=== PATIENT | male | born 1960 | race Two or more races ===

== ENCOUNTER 2024-03-11 03:17 | Inpatient (IN) | payer OTHER ==
[~2024-03-11] VITALS: Ht 185.4 cm; Wt 99.3 kg
[2024-03-11] MEDS ORDERED: COZAAR100 MG (03:31)
[2024-03-11] MEDS ORDERED: JARDIANCE25 MG PO (03:32)
[2024-03-11] MEDS ORDERED: VERELAN PM200 MG PO (03:32)
[2024-03-11] MEDS ORDERED: FENOFIBRATE150 MG PO (03:32)
[2024-03-11] MEDS ORDERED: NEBIVOLOL HCL10 MG PO (03:32)
[2024-03-11] MEDS ORDERED: EZETIMIBE10 MG PO (03:32)
[2024-03-11] MEDS ORDERED: PROTONIX40 M1 PO (03:32)
--- NOTE | 2024-03-11 03:36 | NUR ---
SE RECIBE MASCULINO ALERTA Y ORIENTADO X3 QUIEN REFIERE DOLOR ABDOMINAL Y VOMITOS X4 LUEGO DE SANDRITA COMIDO CARNE CON SALSA SHILO Y PIMIENTOS. SE MIDEN S/V Y SE UBICA.
[2024-03-11] MEDS ORDERED: METOCLOPRAMIDE HCL 5 MG/ML VIAL IM STA (03:43)
[2024-03-11] MEDS ORDERED: RINGERS SOLUTION,LACTATED 1,000 ML IV STA (03:44)
[2024-03-11] MEDS ORDERED: ONDANSETRON HCL 2 MG/ML VIAL IV STA (03:44)
[2024-03-11] MEDS ORDERED: FAMOtidine 10 MG/ML (4ML VIAL) IV PUSH STA (03:45)
[2024-03-11] MEDS ORDERED: KETOROLAC TROMETHAMINE 30 MG VIAL IV STA (03:45)
[2024-03-11] MEDS ORDERED: HYOSCYAMINE SULFATE 0.125 MG TAB.SUBL SL ONE (03:45)
[2024-03-11] MEDS ORDERED: HYOSCYAMINE SULFATE 0.125 MG TAB.SUBL ONE (03:50)
[2024-03-11] MEDS ORDERED: KETOROLAC TROMETHAMINE 30 MG VIAL ONE (03:50)
[2024-03-11] MEDS ORDERED: ONDANSETRON HCL 2 MG/ML VIAL ONE (03:50)
[2024-03-11] MEDS ORDERED: FAMOTIDINE/PF 20 MG/2 ML VIAL ONE ×2 (03:51→16:05)
[2024-03-11] MEDS ORDERED: METOCLOPRAMIDE HCL 5 MG/ML VIAL ONE (03:51)
--- NOTE | 2024-03-11 03:51 | NUR ---
PE EVALUADO POR MD ANN OR[place] TX MED A PTE SE EDUCA A PTE SOBRE EL MISMO Y PTE REFEIRE ENTENDER. SE LLEVA ACABO VENOPUNCION BAJO MEDIDAS ACEPTICAS. PTE PEND A RESULTADOS DE LABS.
[2024-03-11 04:18] LABS: HEMATOCRIT 53.2 % (39.0-48.0); HEMOGLOBIN 18.5 g/dL (13-16.00); MEAN CELL VOLUME 89.1 fL (80.0-100.00); MEAN CORPUSCULAR HGB CONC 34.8 g/dl (32.0-36.0); RED BLOOD COUNT 5.97 M/uL (4.00-6.00); RED CELL DISTRIBUTION WIDTH 13.3 % (11.5-14.5)
[2024-03-11 04:33] LABS: ALBUMIN 4.2 gm/dL (3.4-5.0); BILIRUBIN TOTAL 0.92 mg/dL (0.3-1.2); CALCIUM 9.7 mg/dL (8.5-10.1); CREATININE SERUM 1.22 mg/dL (0.70-1.30); GFR 59.8; GLOBULINA 3.3 G/DL (2.4-3.5); POTASSIUM 3.06 mEq/L (3.5-5.1); TOTAL PROTEIN 7.5 gm/dL (6.4-8.2)
[2024-03-11] MEDS ORDERED: MEPERIDINE HCL/PF 50 MG/ML VIAL IM STA (04:45)
[2024-03-11] MEDS ORDERED: PROMETHAZINE HCL 50 MG/ML AMPUL IM STA (04:46)
[2024-03-11] MEDS ORDERED: PROMETHAZINE HCL 50 MG/ML AMPUL IM ONE (04:50)
[2024-03-11] MEDS ORDERED: BARIUM SULFATE 450 ML ORAL.SUSP PO ONE (04:51)
[2024-03-11 05:51] LABS: PLATELET COUNT 349 K/uL (150-450)
[2024-03-11] MEDS ORDERED: ACETAMINOPHEN 500 MG GEL..CAP PO ONE ×2 (06:24→06:30)
[2024-03-11] MEDS ORDERED: PIPERACILLIN/TAZOBACTAM SODIUM 3.375 GM VIAL IV STA (07:31)
--- NOTE | 2024-03-11 07:39 | NUR ---
SE RECIBE PTE ALERTA Y ORIENTADO X3 EN CAMA CON BARANDAS ELEVADAS. PENDIENTE REALIZAR CT PO A LAS 0800
[2024-03-11] MEDS ORDERED: PIPERACILLIN/TAZOBACTAM SODIUM 3.375 GM VIAL IV ONE (07:43)
[2024-03-11] MEDS ORDERED: MEPERIDINE HCL/PF 50 MG/ML VIAL IM ONE (08:45)
[2024-03-11] MEDS ORDERED: FAMOTIDINE/PF 20 MG in 0.9 % SODIUM CHLORIDE 100 ML IV SCH (13:05)
[2024-03-11] MEDS ORDERED: LOSARTAN POTASSIUM 50 MG TABLET PO SCH (13:11)
[2024-03-11] MEDS ORDERED: CIPROFLOXACIN IN 5 % DEXTROSE 200 ML IV SCH (13:12)
[2024-03-11] MEDS ORDERED: METRONIDAZOLE/SODIUM CHLORIDE 100 ML IV SCH (13:12)
[2024-03-11] MEDS ORDERED: 0.9 % SODIUM CHLORIDE 1,000 ML IV SCH (13:15)
[2024-03-11] MEDS ORDERED: POTASSIUM CHLORIDE 20MEQ/100ML H2O PB IV ONE ×2 (13:15→13:22)
[2024-03-11] MEDS ORDERED: MORPHINE SULFATE 2 MG/ML CARTRIDGE IV PRN (13:15)
[2024-03-11] MEDS ORDERED: POTASSIUM CHLORIDE/D5-0.9%NACL 1,000 ML IV ONE (13:15)
[2024-03-11] MEDS ORDERED: CIPROFLOXACIN IN 5 % DEXTROSE 400 MG/200 ML PIGGYBAG IV ONE (13:22)
[2024-03-11] MEDS ORDERED: METRONIDAZOLE/SODIUM CHLORIDE 500 MG/100 ML PIGGYBACK IV ONE ×2 (13:23→16:34)
[2024-03-11] MEDS ORDERED: MORPHINE SULFATE 4 MG/ML CARTRIDGE IV SCH (13:28)
[2024-03-11] MEDS ORDERED: VERAPAMIL HCL 180 MG CAP24H.PEL PO SCH (13:29)
[2024-03-11] MEDS ORDERED: ACETAMINOPHEN 325 MG TABLET PO PRN (13:30)
[2024-03-11] MEDS ORDERED: INSULIN LISPRO 1,000 UNIT/10 ML UNITS SUBCUTANEO PRN (13:30)
[2024-03-11] MEDS ORDERED: DEXTROSE 50 % IN WATER 0.5 G/ML DISP.SYRIN IV PRN (13:30)
[2024-03-11] MEDS ORDERED: VERAPAMIL HCL 180 MG TABLET.SA PO SCH (13:31)
[2024-03-11 14:04] LABS: INR 1.16
[2024-03-11 14:09] LABS: ALBUMIN 3.8 gm/dL (3.4-5.0); BILIRUBIN TOTAL 1.11 mg/dL (0.3-1.2); BILIRUBIN,CONJUGATED 0.43 mg/dL (0.0-0.2); BILIRUBIN,UNCONJUGATED 0.68 mg/dL (0.0-0.6); CALCIUM 9.1 mg/dL (8.5-10.1); TOTAL PROTEIN 7.4 gm/dL (6.4-8.2)
[2024-03-11] MEDS ORDERED: SODIUM CL 0.9% 100 ML IV.SOLN IV ONE (16:33)
[2024-03-12] MEDS ORDERED: THIAMINE HCL 100 MG/ML 2 ML VIAL IV SCH (12:00)
[2024-03-13 08:36] LABS: HEMATOCRIT 50.6 % (39.0-48.0); HEMOGLOBIN 17.3 g/dL (13-16.00); MEAN CELL VOLUME 91.6 fL (80.0-100.00); MEAN CORPUSCULAR HEMOGLOBIN 31.4 pg (27.00-32.0); MEAN CORPUSCULAR HGB CONC 34.3 g/dl (32.0-36.0); PLATELET COUNT 213 K/uL (150-450); RED BLOOD COUNT 5.52 M/uL (4.00-6.00); RED CELL DISTRIBUTION WIDTH 13.8 % (11.5-14.5)
[2024-03-13 09:10] LABS: ALBUMIN 2.5 gm/dL (3.4-5.0); BILIRUBIN TOTAL 1.28 mg/dL (0.3-1.2); CREATININE SERUM 1.34 mg/dL (0.70-1.30); GFR 53.66; GLOBULINA 2.6 G/DL (2.4-3.5); POTASSIUM 4.64 mEq/L (3.5-5.1); TOTAL PROTEIN 5.1 gm/dL (6.4-8.2)
[2024-03-14 08:41] LABS: HEMATOCRIT 45.1 % (39.0-48.0); HEMOGLOBIN 15.6 g/dL (13-16.00); MEAN CELL VOLUME 92.2 fL (80.0-100.00); MEAN CORPUSCULAR HEMOGLOBIN 31.9 pg (27.00-32.0); MEAN CORPUSCULAR HGB CONC 34.5 g/dl (32.0-36.0); PLATELET COUNT 227 K/uL (150-450); RED BLOOD COUNT 4.89 M/uL (4.00-6.00); RED CELL DISTRIBUTION WIDTH 13.5 % (11.5-14.5)
[2024-03-14 09:15] LABS: ALBUMIN 2.5 gm/dL (3.4-5.0); BILIRUBIN TOTAL 1.01 mg/dL (0.3-1.2); CALCIUM 7.3 mg/dL (8.5-10.1); CREATININE SERUM 0.93 mg/dL (0.70-1.30); GFR 81.8; GLOBULINA 2.8 G/DL (2.4-3.5); POTASSIUM 4.35 mEq/L (3.5-5.1); TOTAL PROTEIN 5.3 gm/dL (6.4-8.2)
== END 2024-03-14 15:20 | disposition home or self-care (01) | DRG 391 ==
LOC: ER 03:18 → SURH 13:46 → SEC-K 13:46 → SURH 15:50
PROVIDERS: General Practice; ADMIT Internal Medicine; ATTEND Internal Medicine
PROC: BW21ZZZ Computerized Tomography (CT Scan) of Abdomen and Pelvis (ICD-10-PCS; principal; 2024-03-11)
PROC: BW40ZZZ Ultrasonography of Abdomen (ICD-10-PCS; 2024-03-11)
DX: K90.49 Malabsorption due to intolerance, not elsewhere classified (principal); K85.90 Acute pancreatitis without necrosis or infection, unspecified; D72.828 Other elevated white blood cell count; I10 Essential (primary) hypertension; E11.9 Type 2 diabetes mellitus without complications; Z79.4 Long term (current) use of insulin

== ENCOUNTER 2024-04-04 08:25 | Emergency (ER) | payer OTHER ==
[~2024-04-04] VITALS: Ht 185.4 cm; Wt 84.4 kg
[~2024-04-04 08:25] MED LIST: COZAAR100 MG; EZETIMIBE10 MG PO; FENOFIBRATE150 MG PO; JARDIANCE25 MG PO; NEBIVOLOL HCL10 MG PO; PROTONIX40 M1 PO; VERELAN PM200 MG PO
[2024-04-04] MEDS ORDERED: CEFTRIAXONE SODIUM 2,000 MG VIAL IV ONE (08:45)
[2024-04-04] MEDS ORDERED: CEFTRIAXONE SODIUM 2,000 MG VIAL ONE (08:47)
[2024-04-04] MEDS ORDERED: LIDOCAINE HCL 1% 10ML VIAL ONE (08:52)
[2024-04-04 09:01] LABS: HEMATOCRIT 43.5 % (39.0-48.0); HEMOGLOBIN 14.9 g/dL (13-16.00); MEAN CELL VOLUME 88.1 fL (80.0-100.00); MEAN CORPUSCULAR HEMOGLOBIN 30.3 pg (27.00-32.0); MEAN CORPUSCULAR HGB CONC 34.4 g/dl (32.0-36.0); PLATELET COUNT 490 K/uL (150-450); RED BLOOD COUNT 4.93 M/uL (4.00-6.00); RED CELL DISTRIBUTION WIDTH 13.7 % (11.5-14.5)
[2024-04-04 10:16] LABS: CALCIUM 9.8 mg/dL (8.5-10.1); CREATININE SERUM 1.22 mg/dL (0.70-1.30); GFR 59.8; POTASSIUM 4.16 mEq/L (3.5-5.1)
[2024-04-04 11:12] LABS: URINE APPEARANCE Clear; URINE BILIRRUBIN Negative (NEGATIVE); URINE BLOOD Negative; URINE COLOR Yellow; URINE KETONE Negative (NEGATIVE); URINE LEUKOCYTE Negative; URINE NITRATE Negative; URINE PROTEIN Negative (NEGATIVE)
[2024-04-04 11:17] LABS: URINE BACTERIA 6.2 uL (0.0-1933); URINE EPITHELIAL CELLS 4.6 uL (0.0-38.8); URINE RBC 2.9 uL (0.0-20.8); URINE WBC 3.3 uL (0.0-23.2)
[2024-04-04 11:21] LABS: URINE GLUCOSE >=1000 MG/DL (NEGATIVE)
== END 2024-04-04 12:10 | disposition home or self-care (01) ==
LOC: ER 08:25
PROVIDERS: Emergency Medicine
DX: L02.31 Cutaneous abscess of buttock (principal); I10 Essential (primary) hypertension; E11.9 Type 2 diabetes mellitus without complications; Z79.84 Long term (current) use of oral hypoglycemic drugs

== ENCOUNTER 2024-04-04 10:53 | Outpatient (CLI) | payer OTHER | END 2024-04-04 11:04 | disposition home or self-care (01) | LOC: LAB 10:53 | PROVIDERS: ATTEND Specialist | DX: L02.91 Cutaneous abscess, unspecified (principal) ==